=== PATIENT | male | born 1990 | race Caucasian/White ===

== ENCOUNTER 2018-06-09 19:35 | Emergency (ER) | payer OTHER ==
[2018-06-09] MEDS ORDERED: Ibuprofen 800 MG TAB ONE (19:51)
--- NOTE | 2018-06-09 20:06 | RAD ---
LEFT HAND THREE VIEWS: History: Left hand injury. FINDINGS: Joint spaces are preserved. No acute fracture, dislocation, or aggressive osseous erosions. IMPRESSION: No acute osseous abnormalities are demonstrated. POS: [facility]
[2018-06-09] MEDS ORDERED: Adacel (T-DAP) 0.5 ML VIAL ONE (20:20)
[2018-06-09] MEDS ORDERED: HYDROcodone/Acetaminophen 10/325 mg Tablet ONE (20:20)
[2018-06-09] MEDS ORDERED: Cephalexin 500 MG CAP ONE (20:20)
== END 2018-06-09 20:45 | disposition home or self-care (01) ==
LOC: MADERS 19:35
DX: S60.222A Contusion of left hand, initial encounter (principal); F17.210 Nicotine dependence, cigarettes, uncomplicated; W18.30XA Fall on same level, unspecified, initial encounter
CPT/HCPCS: 90471; 90715